=== PATIENT | male | born 1940 | race Caucasian/White ===

== ENCOUNTER → 2016-06-07 | Outpatient (CLI) | payer MEDICARE ==
[2016-06-07 10:39] LABS: ALT 39 U/L (21-72); AST 28 U/L (17-59); Cholesterol 163 mg/dL (<200); Creatine Kinase 67 U/L (55-170); HDL Cholesterol 43 mg/dL (40-60); Triglycerides 97 mg/dL (<150)
== END | disposition home or self-care (01) ==
LOC: LABWHC1 09:35
PROVIDERS: ATTEND Internal Medicine Interventional Cardiology
DX: E78.2 Mixed hyperlipidemia (principal)
CPT/HCPCS: 36415; 80061; 82550; 84450; 84460

== ENCOUNTER → 2017-01-02 | Outpatient (CLI) | payer MEDICARE ==
[2017-01-02 09:54] LABS: CH 32.5; CHCM 33.5; HCT 44.7 % (39.0-53.0); HDW 2.39; HGB 15.4 gm/dL (13.0-17.5); MCH 33.5 pg (25.0-35.0); MCHC 34.4 g/dL (31.0-37.0); MCV 97.6 fL (80.0-100.0); Mean Platelet Volume 7.6; RBC 4.58 m/uL (4.30-5.90); RDW 12.9 % (11.5-15.5); WBC 8.4 k/uL (3.8-10.6)
[2017-01-02 09:55] LABS: ALT 35 U/L (21-72); AST 28 U/L (17-59); Alkaline Phosphatase 116 U/L (38-126); Anion Gap 8 mmol/L; Blood Urea Nitrogen 16 mg/dL (9-20); Calcium 9.7 mg/dL (8.4-10.2); Carbon Dioxide 29 mmol/L (22-30); Chloride 104 mmol/L (98-107); Cholesterol 144 mg/dL (<200); Glucose 86 mg/dL (74-99); HDL Cholesterol 39 mg/dL (40-60); Magnesium 2.1 mg/dL (1.6-2.3); Non-African American GFR(MDRD) >60 (>60 ml/min/1.73 sqM); Potassium 4.7 mmol/L (3.5-5.1); Sodium 141 mmol/L (137-145); Total Protein 6.7 g/dL (6.3-8.2)
== END | disposition home or self-care (01) ==
LOC: LABWHC1 09:19
PROVIDERS: ATTEND Internal Medicine Interventional Cardiology
DX: E78.2 Mixed hyperlipidemia (principal); I10 Essential (primary) hypertension
CPT/HCPCS: 36415; 80053; 80061; 83036; 83735; 85027

== ENCOUNTER → 2017-05-28 | Outpatient (CLI) | payer MEDICARE ==
[2017-05-28 10:23] LABS: ALT 45 U/L (21-72); AST 31 U/L (17-59); Cholesterol 180 mg/dL (<200); HDL Cholesterol 44 mg/dL (40-60); LDL Cholesterol,Calculated 115 mg/dL (0-99); Triglycerides 103 mg/dL (<150)
== END | disposition home or self-care (01) ==
LOC: LABWHC1 09:37
PROVIDERS: ATTEND Internal Medicine Interventional Cardiology
DX: E78.2 Mixed hyperlipidemia (principal)
CPT/HCPCS: 36415; 80061; 84450; 84460

== ENCOUNTER → 2017-12-20 | Outpatient (CLI) | payer MEDICARE ==
[2017-12-20 09:23] LABS: ALT 37 U/L (21-72); AST 32 U/L (17-59); Albumin 3.9 g/dL (3.5-5.0); Alkaline Phosphatase 99 U/L (38-126); Anion Gap 4 mmol/L; Blood Urea Nitrogen 16 mg/dL (9-20); Calcium 9.9 mg/dL (8.4-10.2); Carbon Dioxide 29 mmol/L (22-30); Chloride 107 mmol/L (98-107); Cholesterol 116 mg/dL (<200); Glucose 95 mg/dL (74-99); HDL Cholesterol 39 mg/dL (40-60); LDL Cholesterol,Calculated 61 mg/dL (0-99); Potassium 4.6 mmol/L (3.5-5.1); Sodium 140 mmol/L (137-145); Total Bilirubin 0.8 mg/dL (0.2-1.3); Total Protein 6.5 g/dL (6.3-8.2); Triglycerides 78 mg/dL (<150)
== END | disposition home or self-care (01) ==
LOC: LABWHC1 08:04
PROVIDERS: ATTEND Internal Medicine Interventional Cardiology
DX: E78.2 Mixed hyperlipidemia (principal)
CPT/HCPCS: 36415; 80053; 80061

== ENCOUNTER → 2018-07-02 | Outpatient (CLI) | payer MEDICARE ==
[2018-07-02 17:25] LABS: Albumin/Globulin Ratio 1.9 (1.60-3.17); Anion Gap 9.2 mmol/L (4.00-12.00); Calcium 9.5 mg/dL (8.7-10.3); Carbon Dioxide 25.8 mmol/L (21.6-31.8); Globulin 2.1 g/dL (1.6-3.3); LDL Cholesterol,Calculated 80.4 mg/dL (0.0-131.0); Potassium 4.5 mmol/L (3.5-5.5); Total Bilirubin 0.9 mg/dL (0.2-1.2); Total Protein 6.1 g/dL (6.2-8.2); VLDL Calculation 14.6 mg/dL (5.00-40.00)
== END | disposition home or self-care (01) ==
LOC: LABWHC1 08:15
PROVIDERS: ATTEND Internal Medicine Interventional Cardiology
DX: E78.2 Mixed hyperlipidemia (principal)
CPT/HCPCS: 36415; 80053; 80061

== ENCOUNTER → 2019-01-11 | Outpatient (CLI) | payer MEDICARE ==
[2019-01-11 17:00] LABS: African American GFR (CKD) 73.6 (60.0-200.0); Albumin 4.2 g/dL (3.80-4.90); Albumin/Globulin Ratio 2.21 (1.60-3.17); Anion Gap 7.9 mmol/L (4.00-12.00); BUN/Creat Ratio 13.64 Ratio (12.00-20.00); Calcium 9.4 mg/dL (8.7-10.3); Carbon Dioxide 26.1 mmol/L (21.6-31.8); Chol/HDL Ratio 2.93; Globulin 1.9 g/dL (1.6-3.3); LDL Cholesterol,Calculated 66.6 mg/dL (0.0-131.0); Potassium 4.4 mmol/L (3.5-5.5); Total Protein 6.1 g/dL (6.2-8.2); VLDL Calculation 16.4 mg/dL (5.00-40.00)
== END | disposition home or self-care (01) ==
LOC: LABWHC1 08:12
PROVIDERS: ATTEND Nurse Practitioner Adult Health
DX: I25.5 Ischemic cardiomyopathy (principal); E78.2 Mixed hyperlipidemia
CPT/HCPCS: 36415; 80053; 80061

== ENCOUNTER → 2019-03-18 | Outpatient (CLI) | payer MEDICARE | END | disposition home or self-care (01) | LOC: LABWHC1 13:22 | PROVIDERS: ATTEND Urology | DX: N40.1 Benign prostatic hyperplasia with lower urinary tract symptoms (principal); R97.20 Elevated prostate specific antigen [PSA] | CPT/HCPCS: 36415; 84153 ==

== ENCOUNTER → 2019-07-25 | Outpatient (CLI) | payer MEDICARE ==
[2019-07-25 16:19] LABS: Chol/HDL Ratio 3.33; LDL Cholesterol,Calculated 75.4 mg/dL (0.0-131.0); VLDL Calculation 17.6 mg/dL (5.00-40.00)
== END | disposition home or self-care (01) ==
LOC: LABWHC1 08:09
PROVIDERS: ATTEND Nurse Practitioner Adult Health
DX: E78.2 Mixed hyperlipidemia (principal)
CPT/HCPCS: 36415; 80061; 84450; 84460

== ENCOUNTER → 2020-03-05 | Outpatient (CLI) | payer MEDICARE ==
[2020-03-05 15:59] LABS: African American GFR (CKD) 73.1 (60.0-200.0); Albumin 4.1 g/dL (3.80-4.90); Albumin/Globulin Ratio 1.86 (1.60-3.17); Anion Gap 7.5 mmol/L (4.00-12.00); BUN/Creat Ratio 19.09 Ratio (12.00-20.00); Calcium 9.7 mg/dL (8.7-10.3); Carbon Dioxide 27.5 mmol/L (21.6-31.8); Chol/HDL Ratio 3.21; Globulin 2.2 g/dL (1.6-3.3); LDL Cholesterol,Calculated 72.2 mg/dL (0.0-131.0); Non-African American GFR(CKD) 63.1 (60.0-200.0); Potassium 4.7 mmol/L (3.5-5.5); Total Bilirubin 0.9 mg/dL (0.2-1.2); Total Protein 6.3 g/dL (6.2-8.2); VLDL Calculation 13.8 mg/dL (5.00-40.00)
== END | disposition home or self-care (01) ==
LOC: LABWHC1 08:30
PROVIDERS: ATTEND Nurse Practitioner Adult Health
DX: I10 Essential (primary) hypertension (principal); E78.2 Mixed hyperlipidemia; I25.5 Ischemic cardiomyopathy; R97.20 Elevated prostate specific antigen [PSA]
CPT/HCPCS: 36415; 80053; 80061; 84153

== ENCOUNTER → 2021-02-18 | Outpatient (CLI) | payer MEDICARE ==
[2021-02-18 18:53] LABS: LDL Cholesterol,Calculated 75.8 mg/dL (0.0-131.0); Prostate Specific Antigen 1.3 ng/mL (0.00-6.50); VLDL Calculation 14.2 mg/dL (5.00-40.00)
== END | disposition home or self-care (01) ==
LOC: LABWHC1 10:25
PROVIDERS: ATTEND Urology
DX: E78.2 Mixed hyperlipidemia (principal)
CPT/HCPCS: 36415; 80061; 84153; 84450; 84460

== ENCOUNTER → 2021-10-21 | Outpatient (CLI) | payer MEDICARE ==
[2021-10-21 15:13] LABS: ALT 18 U/L (10-49); AST 25 U/L (14-35); African American GFR (CKD) 73.7 (60.0-200.0); Albumin 4.2 g/dL (3.8-4.9); Albumin/Globulin Ratio 1.67 (1.60-3.17); Alkaline Phosphatase 108 U/L (41-126); Blood Urea Nitrogen 14.8 mg/dL (9.0-27.0); Calcium 9.8 mg/dL (8.7-10.3); Carbon Dioxide 26.8 mmol/L (20.0-27.5); Chloride 106 mmol/L (96-109); Chol/HDL Ratio 3.11 Ratio; Globulin 2.5 g/dL (1.6-3.3); Glucose 99 mg/dL (70-110); LDL Cholesterol,Calculated 73.6 mg/dL (0.0-131.0); Non-African American GFR(CKD) 63.6 (60.0-200.0); Potassium 4.8 mmol/L (3.5-5.5); Sodium 141 mmol/L (135-145); Total Protein 6.6 g/dL (6.2-8.2)
== END | disposition home or self-care (01) ==
LOC: LABWHC1 07:25
PROVIDERS: ATTEND Internal Medicine Interventional Cardiology
DX: E78.2 Mixed hyperlipidemia (principal)
CPT/HCPCS: 36415; 80053; 80061

== ENCOUNTER → 2022-03-23 | Outpatient (CLI) | payer MEDICARE ==
[2022-03-23 14:41] LABS: African American GFR (CKD) 72.1 (60.0-200.0); Anion Gap 8.7 mmol/L (10.00-18.00); BUN/Creat Ratio 10.73 Ratio (12.00-20.00); Blood Urea Nitrogen 11.8 mg/dL (9.0-27.0); Calcium 9.6 mg/dL (8.7-10.3); Carbon Dioxide 25.3 mmol/L (20.0-27.5); Non-African American GFR(CKD) 62.2 (60.0-200.0); Potassium 4.7 mmol/L (3.5-5.5); Prostate Specific Antigen 1.9 ng/mL (0.00-6.50)
== END | disposition home or self-care (01) ==
LOC: LABWHC1 08:29
PROVIDERS: ATTEND Urology
DX: I10 Essential (primary) hypertension (principal); R97.20 Elevated prostate specific antigen [PSA]
CPT/HCPCS: 36415; 80048; 82306; 84153

== ENCOUNTER → 2022-05-29 | Outpatient (CLI) | payer MEDICARE ==
[2022-05-29 11:28] LABS: HCT 43.6 % (39.6-50.0); HGB 14.1 g/dL (13.0-17.0); MCH 32.4 pg (27.0-32.0); MCHC 32.3 g/dL (32.0-37.0); MCV 100.2 fL (80.0-97.0); Mean Platelet Volume 11.4 fL (9.5-12.2); NRBC Per 100 WBC 0 /100 WBCS (0.0-0.0); Platelet Count 193 X 10*3/uL (140-440); RBC 4.35 X 10*6/uL (4.40-5.60); WBC 8.36 X 10*3/uL (4.50-10.00)
[2022-05-29 11:54] LABS: ALT 17 U/L (10-49); AST 25 U/L (14-35); African American GFR (CKD) 64.4 (60.0-200.0); Albumin 4.1 g/dL (3.8-4.9); Albumin/Globulin Ratio 1.78 (1.60-3.17); Alkaline Phosphatase 103 U/L (41-126); BUN/Creat Ratio 11.67 Ratio (12.00-20.00); Calcium 9.7 mg/dL (8.7-10.3); Carbon Dioxide 27.1 mmol/L (20.0-27.5); Chloride 103 mmol/L (96-109); Chol/HDL Ratio 3.04 Ratio; Globulin 2.3 g/dL (1.6-3.3); Glucose 94 mg/dL (70-110); LDL Cholesterol,Calculated 76.1 mg/dL (0.0-131.0); Non-African American GFR(CKD) 55.6 (60.0-200.0); Potassium 4.4 mmol/L (3.5-5.5); Sodium 140 mmol/L (135-145); Total Protein 6.4 g/dL (6.2-8.2); VLDL Calculation 15.16 mg/dL (5.00-40.00)
== END ==
LOC: LABWHC1 07:32
PROVIDERS: ATTEND Family Medicine
DX: E78.2 Mixed hyperlipidemia (principal); I10 Essential (primary) hypertension; Z00.00 Encounter for general adult medical examination without abnormal findings
CPT/HCPCS: 36415; 80053; 80061; 83036; 84443; 85027

== ENCOUNTER → 2022-12-11 | Outpatient (CLI) | payer MEDICARE ==
[2022-12-11 14:05] LABS: ALT 18 U/L (10-49); AST 28 U/L (14-35); Chol/HDL Ratio 2.67 Ratio; VLDL Calculation 12.92 mg/dL (5.00-40.00)
== END | disposition home or self-care (01) ==
LOC: LABWHC1 07:08
PROVIDERS: ATTEND Internal Medicine Interventional Cardiology
DX: E78.2 Mixed hyperlipidemia (principal)
CPT/HCPCS: 36415; 80061; 84450; 84460